=== PATIENT | male | born 1975 | race Asian ===

== ENCOUNTER 2024-10-29 23:56 | Emergency (ER) | payer OTHER ==
[~2024-10-29] VITALS: Ht 157.5 cm; Wt 52.3 kg
[2024-10-30 00:02] VITALS: BP 133/94; PULSE 72; RESP 20; TEMP 98; O2SAT 99
[2024-10-30] MEDS: ACETAMINOPHEN 325 MG TABLET PO ONE (02:15)
== END 2024-10-30 04:37 | disposition home or self-care (01) ==
LOC: EMS 23:56
DX: S60.221A Contusion of right hand, initial encounter (principal); M25.512 Pain in left shoulder; R07.89 Other chest pain; V49.49XA Driver injured in collision with other motor vehicles in traffic accident, initial encounter; Y93.89 Activity, other specified; Y92.410 Unspecified street and highway as the place of occurrence of the external cause; Y99.8 Other external cause status
CPT/HCPCS: 71045; 72040; 93005; 99284